=== PATIENT | female | born 1980 | race American Indian/Alaskan Native ===

== ENCOUNTER 2019-02-28 10:28 | Outpatient (CLI) | payer BC ==
--- NOTE | 2019-02-28 12:07 | Ultrasound Report ---
THYROID ULTRASOUND:02/28/19 10:28:00 CLINICAL: Non-toxic diffuse goiter area FINDINGS: High-resolution ultrasound demonstrated a mildly enlarged thyroid. The right lobe measures 4.4 x 1.6 x 1.5cm. The left lobe measures 4.1 x 1.3 x 2.2. The isthmus measures 2.5 mm AP thickness. A complex nodule in the midportion of the right lobe measures 6 x 3 x 5 mm. It is predominantly cystic with a solid echogenic mural nodule. A complex nodule in the midportion of the left lobe measures 7 x 3 x 6 mm and a solid hypoechoic nodule of the left lobe measures 7 x 4 x 11 mm. A 3 mm colloid cyst of the left upper pole. IMPRESSION: A mildly enlarged multinodular thyroid with a few bilateral probably benign nodules. Recommend 6 month followup to reassess the size of the overall gland and the size of nodules.
== END 2019-02-28 10:29 | disposition home or self-care (01) ==
LOC: SPVWC 10:28
PROVIDERS: ATTEND Internal Medicine
DX: E04.2 Nontoxic multinodular goiter (principal)
CPT/HCPCS: 76536